=== PATIENT | female | born 1960 | race Caucasian/White ===

== ENCOUNTER 2018-03-04 19:30 | Emergency (ER) | payer BC, OTHER ==
[~2018-03-04] VITALS: Ht 162.6 cm; Wt 65.8 kg
[2018-03-04] MEDS ORDERED: QUET25TA PO (19:41)
[2018-03-04] MEDS ORDERED: ASPI-605 PO (19:41)
[2018-03-04] MEDS ORDERED: TRAZ-144 PO (19:41)
[2018-03-04] MEDS ORDERED: ATOR10TA PO (19:41)
[2018-03-04] MEDS ORDERED: VALS40TA4 PO (19:41)
--- NOTE | 2018-03-04 19:42 | NUR ---
Dr. Swift at bedside for MSE.
--- NOTE | 2018-03-04 19:59 | NUR ---
Patient discharged to home in stable conditon. Written and verbal after care instructions given. Patient verbalizes understanding of instructions. Patient ambulated out of ER with steady gait, no acute signs of distress, VSS, all belongings taken.
[2018-03-04 20:00] VITALS: BP 148/95
== END 2018-03-04 20:00 | disposition home or self-care (01) ==
LOC: ER 19:33
DX: M77.11 Lateral epicondylitis, right elbow (principal); I10 Essential (primary) hypertension; E78.5 Hyperlipidemia, unspecified; F17.210 Nicotine dependence, cigarettes, uncomplicated; Z88.0 Allergy status to penicillin; Z88.2 Allergy status to sulfonamides; Z79.82 Long term (current) use of aspirin; Z79.891 Long term (current) use of opiate analgesic; Z79.899 Other long term (current) drug therapy
CPT/HCPCS: A4663

== ENCOUNTER 2018-06-10 18:58 | Emergency (ER) | payer BC, OTHER ==
[~2018-06-10] VITALS: Ht 162.6 cm; Wt 66.7 kg
[~2018-06-10 18:58] MED LIST: ASPI-605 PO; ATOR10TA PO; QUET25TA PO; TRAZ-182 PO; VALS40TA4 PO
--- NOTE | 2018-06-10 19:46 | NUR ---
Dr. Hedrick at bedside for MSE.
--- NOTE | 2018-06-10 19:46 | NUR ---
Pt provided urine sample, sent to lab.
--- NOTE | 2018-06-10 20:10 | NUR ---
Pt out of ER for CT.
--- NOTE | 2018-06-10 20:21 | NUR ---
Pt back to ER from CT.
[2018-06-10 21:17] LABS: BASOPHILS % (AUTO) 0.6 % (0.0-2.0); EOSINOPHILS # (AUTO) 0.1 K/uL (0.0-0.7); EOSINOPHILS % (AUTO) 0.7 % (0.0-7.0); HEMOGLOBIN 14.7 g/dL (10.9-14.3); LYMPHOCYTES # (AUTO) 3.4 K/uL (20.0-40.0); LYMPHOCYTES % (AUTO) 42.7 % (20.5-51.5); MEAN CORPUSCULAR HEMOGLOBIN 32.2 uug (24.7-32.8); MEAN CORPUSCULAR HGB CONC 34 g/dL (32.3-35.6); MEAN CORPUSCULAR VOLUME 94.4 fL (75.5-95.3); MONOCYTES # (AUTO) 0.5 K/uL (2.0-10.0); MONOCYTES % (AUTO) 6.7 % (0.0-11.0); NEUTROPHILS % (AUTO) 49.3 % (38.5-71.5); PLATELET COUNT (AUTO) 219 K/uL (179-408); RED BLOOD CELL COUNT(AUTO) 4.56 MIL/uL (3.63-4.92)
[2018-06-10 21:24] LABS: CARBON DIOXIDE 26 mmol/L (21-32); CHLORIDE 103 mmol/L (98-107); GLUCOSE 103 mg/dL (74-106); POTASSIUM 3.3 mmol/L (3.5-5.1); UREA NITROGEN, BLOOD 19 mg/dL (7-18)
[2018-06-10 21:30] LABS: ALANINE AMINOTRANSFERASE 25 U/L (14-59); ALKALINE PHOSPHATASE 87 U/L (50-136); ASPARTATE AMINOTRANSFERASE 10 U/L (15-37); BILIRUBIN,DIRECT < 0.1 mg/dL (0.0-0.2); BILIRUBIN,TOTAL 0.2 mg/dL (0.2-1.0); LIPASE 150 U/L (73-393); TOTAL PROTEIN, SERUM 6.8 g/dL (6.4-8.2)
[2018-06-10 21:51] LABS: *BILIRUBIN,URIN NEGATIVE (NEGATIVE); *BLOOD, URINE 1+ (NEGATIVE); *CLARITY,URINE CLEAR (CLEAR); *COLOR,URINE YELLOW (YELLOW); *KETONES,URINE NEGATIVE (NEGATIVE); *PROTEIN,URINE NEGATIVE (NEGATIVE); *UROBILINOGEN,URINE 0.2 E.U./dl (NORMAL); LEUKOCYTE ESTERASE ,URINE TRACE (NEGATIVE); NITRITE, URINE NEGATIVE (NEGATIVE); PH,URINE 5.5 (5.0-8.0); UGLUCOSE NEGATIVE (NEGATIVE)
--- NOTE | 2018-06-10 21:56 | NUR ---
Patient discharged to home in stable conditon. Written and verbal after care instructions given. Patient verbalizes understanding of instructions. Pt ambulated out of ER with steady gait. No acute signs of distress. VSS, all belongings taken.
[2018-06-10 21:58] VITALS: BP 132/95
[2018-06-10 22:19] LABS: BACTERIA,URINE NONE SEEN /HPF (NONE SEEN); MUCUS,URINE FEW /LPF (0-FEW); SQUAMOUS EPITHELIAL CELL,UR FEW /HPF (NONE SEEN)
== END 2018-06-10 21:58 | disposition home or self-care (01) ==
LOC: ER 19:01
DX: R10.12 Left upper quadrant pain (principal); I10 Essential (primary) hypertension; E78.5 Hyperlipidemia, unspecified; Z88.0 Allergy status to penicillin; Z88.2 Allergy status to sulfonamides
CPT/HCPCS: 36415; 70030-TC; 71045; 83605; 83690; 85025; 85730; 87040; 87086; 93005; A4663